=== PATIENT | female | born 1975 | race African-American/Black ===

== ENCOUNTER 2017-01-25 12:57 | Emergency (ER) | payer SELFPAY ==
[2017-01-25] MEDS ORDERED: Ketorolac Tromethamine 30 MG/ML VIAL ONE (13:14)
== END 2017-01-25 14:30 | disposition home or self-care (01) ==
LOC: BURERS 12:57
DX: R51 Headache (principal)
CPT/HCPCS: 96374; J1885

== ENCOUNTER 2017-02-27 12:14 | Emergency (ER) | payer SELFPAY ==
[2017-02-27 12:43] LABS: Bilirubin Negative (Negative); Blood, Urine Trace (Negative); Clarity Slightly Cloudy (Clear); Glucose, Urine (Dipstick) Negative (Negative); Leukocyte Large (Negative); Nitrite Negative (Negative); Protein, Urine (Dipstick) Negative (Neg-Trace); Specific Gravity, Urine 1.015 (1.005-1.030)
[2017-02-27 12:47] LABS: Pregnancy Test - Urine (BHCG) NEGATIVE (NEGATIVE)
[2017-02-27 12:48] LABS: Pregu Control Bar Appear? YES (CONTROL BAR); Specific Gravity 1.015 (1.002-1.036)
[2017-02-27 12:51] LABS: Bacteria/HPF 1+ HPF (None Seen); Crystals/HPF None Seen HPF (Negative); Hyaline Casts/LPF NONE SEEN LPF (0-3 Hyaline); Other Casts/LPF None Seen LPF (0-3 Hyaline); Oval Fat Bodies/HPF None Seen HPF (None Seen); RBC/HPF 0-3 HPF (0-3); Renal Epithelial None Seen HPF (0-3); Sperm/HPF None Seen HPF (None Seen); Transitional Epithelial NONE SEEN HPF (0-3); Trichomonas/HPF None Seen HPF (None Seen); WBC/HPF 21-50 HPF (0-3); Yeast-All Forms None Seen HPF (None Seen)
== END 2017-02-27 13:02 | disposition home or self-care (01) ==
LOC: BURERS 12:14
DX: N39.0 Urinary tract infection, site not specified (principal)
CPT/HCPCS: 81003; 81015; 81025; 99283

== ENCOUNTER 2017-10-02 15:28 | Emergency (ER) | payer SELFPAY ==
[2017-10-02] MEDS ORDERED: Bicillin LA 1.2 MILLION UNITS/2 ML SYRINGE ONE (15:41)
[2017-10-02] MEDS ORDERED: Dexamethasone 4 mg/ml Vial ONE (15:41)
[2017-10-02] MEDS ORDERED: Bicillin CR 1.2 MILL UNITS/2 ML SYRINGE ONE (15:42)
== END 2017-10-02 16:02 | disposition home or self-care (01) ==
LOC: BURERS 15:28
DX: J02.9 Acute pharyngitis, unspecified (principal)
CPT/HCPCS: 96372; J0558; J0561; J1100

== ENCOUNTER 2017-12-22 22:01 | Emergency (ER) | payer OTHER, SELFPAY ==
[2017-12-22] MEDS ORDERED: Azithromycin 250 MG TAB ONE (22:32)
[2017-12-22] MEDS ORDERED: methylPREDNISolone Acetate 40 mg/ml Vial ONE (22:32)
== END 2017-12-22 22:38 | disposition home or self-care (01) ==
LOC: BURERS 22:01
DX: J01.90 Acute sinusitis, unspecified (principal)
CPT/HCPCS: 96372; J1030

== ENCOUNTER 2018-01-20 19:11 | Emergency (ER) | payer OTHER, SELFPAY ==
[2018-01-20] MEDS ORDERED: Amoxicillin 125 mg/5 ml Oral Suspension ONE (19:52)
[2018-01-20] MEDS ORDERED: Benzonatate 100 MG CAP ONE (19:52)
[2018-01-20] MEDS ORDERED: AMOXicillin 250 MG CAP ONE (19:53)
== END 2018-01-20 19:56 | disposition home or self-care (01) ==
LOC: BURERS 19:11
DX: J01.90 Acute sinusitis, unspecified (principal)
CPT/HCPCS: 99283

== ENCOUNTER 2018-01-22 12:12 | Emergency (ER) | payer SELFPAY | END 2018-01-22 12:32 | disposition home or self-care (01) | LOC: BURERS 12:12 | DX: J20.9 Acute bronchitis, unspecified (principal) | CPT/HCPCS: 99283 ==

== ENCOUNTER 2018-05-25 12:12 | Emergency (ER) | payer MEDICAID, SELFPAY ==
[2018-05-25 12:30] LABS: Bilirubin Negative (Negative); Clarity Cloudy (Clear); Glucose, Urine (Dipstick) Negative (Negative); Leukocyte Small (Negative); Nitrite Negative (Negative); Protein, Urine (Dipstick) 30 mg/dL (Neg-Trace); pH, Urine 8.5 (5.0-9.0)
[2018-05-25 12:31] LABS: Blood, Urine Negative (Negative)
[2018-05-25 12:32] LABS: Bacteria/HPF 3+ HPF (None Seen); RBC/HPF 0-3 HPF (0-3)
--- NOTE | 2018-05-25 12:58 | RAD ---
CHEST ONE VIEW LEFT RIBS THREE VIEWS: History: Chest pain. Patient feels a bump. Symptoms x one week. FINDINGS: One view chest. Normal cardiac silhouette. Lungs and pleural spaces are clear. No pneumothorax or oss eous abnormality. Left rib series. No fracture. No cortical irregularity or periosteal reaction. IMPRESSION: 1. No acute cardiopulmonary process. 2. Unremarkable left rib radiographs. POS: [facility]
== END 2018-05-25 13:02 | disposition home or self-care (01) ==
LOC: BURERS 12:12
DX: R07.89 Other chest pain (principal)
CPT/HCPCS: 81003; 81015

== ENCOUNTER 2018-05-27 11:34 | Emergency (ER) | payer MEDICAID, SELFPAY | END 2018-05-27 12:10 | disposition home or self-care (01) | LOC: BURERS 11:34 | DX: R07.89 Other chest pain (principal); Z79.899 Other long term (current) drug therapy | CPT/HCPCS: 93005 ==

== ENCOUNTER → 2018-09-15 | Emergency (ER) | payer SELFPAY | LOC: BURERS 12:05 | DX: J06.9 Acute upper respiratory infection, unspecified (principal) | CPT/HCPCS: 99283 ==

== ENCOUNTER 2019-01-27 12:15 | Emergency (ER) | payer MEDICAID, SELFPAY ==
[2019-01-27] MEDS ORDERED: Dexamethasone 4 MG TAB ONE (12:28)
[2019-01-27] MEDS ORDERED: Bicillin CR 1.2 MILL UNITS/2 ML SYRINGE ONE (12:28)
== END 2019-01-27 12:34 | disposition home or self-care (01) ==
LOC: BURERS 12:15
DX: J02.9 Acute pharyngitis, unspecified (principal)
CPT/HCPCS: 96372; J0558; J8540

== ENCOUNTER 2019-02-27 22:16 | Emergency (ER) | payer SELFPAY ==
[2019-02-27] MEDS ORDERED: traMADol HCl 50 MG TAB ONE (23:03)
[2019-02-27] MEDS ORDERED: Ibuprofen 800 MG TAB ONE (23:03)
== END 2019-02-27 23:10 | disposition home or self-care (01) ==
LOC: BURERS 22:16
DX: M75.52 Bursitis of left shoulder (principal)
CPT/HCPCS: 93005; 94760

== ENCOUNTER 2019-03-18 16:14 | Emergency (ER) | payer SELFPAY | END 2019-03-18 16:32 | disposition home or self-care (01) | LOC: BURERS 16:14 | DX: M79.632 Pain in left forearm (principal) | CPT/HCPCS: 99281 ==

== ENCOUNTER 2019-04-11 11:36 | Emergency (ER) | payer SELFPAY | END 2019-04-11 11:55 | disposition home or self-care (01) | LOC: BURERS 11:36 | DX: J06.9 Acute upper respiratory infection, unspecified (principal) | CPT/HCPCS: 99281 ==

== ENCOUNTER 2019-10-31 13:46 | Emergency (ER) | payer MEDICAID, SELFPAY ==
[2019-10-31] MEDS ORDERED: traMADol HCl 50 MG TAB ONE (14:09)
[2019-10-31] MEDS ORDERED: AMOXicillin 250 MG CAP ONE (14:09)
== END 2019-10-31 14:15 | disposition home or self-care (01) ==
LOC: BURERS 13:46
DX: L04.0 Acute lymphadenitis of face, head and neck (principal); R51 Headache
CPT/HCPCS: 99283

== ENCOUNTER 2021-09-01 16:37 | Emergency (ER) | payer SELFPAY ==
[2021-09-01] MEDS ORDERED: Ketorolac Tromethamine 30 MG/ML VIAL ONE (17:08)
== END 2021-09-01 17:40 | disposition home or self-care (01) ==
LOC: BURERS 16:37
DX: G89.18 Other acute postprocedural pain (principal); K08.89 Other specified disorders of teeth and supporting structures
CPT/HCPCS: 96372; 99282; J1885

== ENCOUNTER 2022-02-28 12:46 | Emergency (ER) | payer SELFPAY ==
[2022-02-28 13:40] LABS: Bilirubin Negative (Negative); Blood, Urine Negative (Negative); Clarity Cloudy (Clear); Glucose, Urine (Dipstick) Negative (Negative); Ketone, Urine Negative (Negative); Leukocyte Small (Negative); Nitrite Negative (Negative); Protein, Urine (Dipstick) Negative (Neg-Trace); Specific Gravity, Urine 1.025 (1.005-1.030); Urobilinogen 0.2 mg/dL (Less than 2)
[2022-02-28 13:44] LABS: Bacteria/HPF 3+ HPF (None Seen); RBC/HPF 0-3 HPF (0-3); Squamous Epithelial 0-3 HPF (0-3)
[2022-02-28 13:45] LABS: Mucous/LPF 2+ LPF (<2+); Pregnancy Test - Urine (BHCG) Negative (Negative); Specific Gravity 1.025 (1.002-1.036)
[2022-02-28 13:46] LABS: Pregu Control Background? CLEAR/WHITE (CLR/WHITE); Pregu Control Bar Appear? YES (CONTROL BAR)
[2022-02-28 13:47] LABS: #Basophils 0.2 thou/uL (0.0-0.2); #Eosinphils 0.1 thou/uL (0.0-0.7); #Monocytes 0.5 thou/uL (0.11-0.59); #Neutrophils 3.8 thou/uL (1.40-6.50); %Basophils 2.3 % (0.0-1.0); %Eosinophils 1.6 % (0.0-10.0); %Lymphocytes 39.7 % (21.0-51.0); %Monocytes 6.8 % (0.0-10.0); %Neutrophils 49.7 % (42.0-75.0); Hemoglobin 11.5 g/dL (12.0-16.0); Mean Corpuscular HGB CONC 33.3 g/dL (32.0-36.0); Mean Corpuscular Hemoglobin 31.7 pg (27.0-31.0); Mean Corpuscular Volume 95.2 fL (78.0-98.0); Mean Platelet Volume 7.9 fL (7.4-10.4); Platelet Count 383 thou/uL (130-400); RBC Distribution Width 12.3 % (11.5-14.5); Red Blood Cell (RBC) Count 3.62 mill/uL (4.20-5.40); White Blood Cell (WBC) Count 7.7 thou/uL (4.8-10.8)
[2022-02-28 13:57] LABS: ALT (SGPT) 36 U/L (8-55); AST (SGOT) 23 U/L (5-34); Albumin 4.1 g/dL (3.5-5.0); Alkaline Phosphatase 58 U/L (40-110); Anion Gap 11 mmol/L (10-20); BUN (Urea Nitrogen) 10 mg/dL (7.0-18.7); Bilirubin, Total 0.3 mg/dL (0.2-1.2); Calc. Creatinine Clearance 0 mL/min (70-130); Calcium 9.5 mg/dL (7.8-10.44); Carbon Dioxide 26 mmol/L (22-29); Chloride 104 mmol/L (98-107); Globulin 4.2 g/dL (2.4-3.5); Glucose 91 mg/dL (70-105); Lipase 41 U/L (8-78); Potassium 4.1 mmol/L (3.5-5.1); Protein, Total 8.3 g/dL (6.0-8.3); Sodium 137 mmol/L (136-145)
[2022-02-28] MEDS ORDERED: Magnesium Citrate 300 ML BOT ONE (14:16)
== END 2022-02-28 14:20 | disposition home or self-care (01) ==
LOC: BURERS 12:46
DX: K59.00 Constipation, unspecified (principal)
CPT/HCPCS: 36415; 74176; 80053; 81003; 81015; 81025; 83605; 83690; 85025

== ENCOUNTER 2022-05-30 19:50 | Emergency (ER) | payer MEDICAID, SELFPAY ==
[2022-05-30] MEDS ORDERED: NEOMYCIN-POLYMYXIN-HC EAR SUSP 200 DROP/10 ML BOT ONE (20:14)
[2022-05-30] MEDS ORDERED: Ketorolac Tromethamine 30 MG/ML VIAL ONE (20:14)
[2022-05-30] MEDS ORDERED: AMOXicillin 250 MG CAP ONE (20:14)
== END 2022-05-30 20:35 | disposition home or self-care (01) ==
LOC: BURERS 19:50
DX: H60.92 Unspecified otitis externa, left ear (principal); K04.7 Periapical abscess without sinus
CPT/HCPCS: 96372; 99282; J1885

== ENCOUNTER 2022-07-25 09:01 | Emergency (ER) | payer SELFPAY ==
[2022-07-25] MEDS ORDERED: Dexamethasone 10 MG/ML VIAL ONE ×2 (10:05→10:07)
== END 2022-07-25 10:36 | disposition home or self-care (01) ==
LOC: BURERS 09:01
DX: U07.1 COVID-19 (principal)
CPT/HCPCS: 87081; 87430; 99283; J1100; U0003; U0005

== ENCOUNTER 2022-12-24 05:18 | Emergency (ER) | payer SELFPAY ==
[2022-12-24 06:42] LABS: #Basophils 0.1 thou/uL (0.0-0.2); #Eosinphils 0.1 thou/uL (0.0-0.7); #Monocytes 0.5 thou/uL (0.11-0.59); #Neutrophils 4.9 thou/uL (1.40-6.50); %Basophils 1.4 % (0.0-1.0); %Eosinophils 1.3 % (0.0-10.0); %Lymphocytes 34.7 % (21.0-51.0); %Monocytes 6.2 % (0.0-10.0); %Neutrophils 56.4 % (42.0-75.0); Mean Corpuscular HGB CONC 33.4 g/dL (32.0-36.0); Mean Corpuscular Hemoglobin 30.6 pg (27.0-31.0); Mean Corpuscular Volume 91.6 fl (78.0-98.0); Mean Platelet Volume 7.3 fL (7.4-10.4); Platelet Count 359 10x3/uL (130-400); RBC Distribution Width 12.4 % (11.5-14.5); Red Blood Cell (RBC) Count 3.92 mill/uL (4.20-5.40); White Blood Cell (WBC) Count 8.7 10x3/uL (4.8-10.8)
[2022-12-24 06:46] LABS: Bilirubin Negative (Negative); Blood, Urine Small (Negative); Clarity Clear (Clear); Glucose, Urine (Dipstick) Negative (Negative); Ketone, Urine Trace mg/dL (Negative); Leukocyte Small (Negative); Nitrite Negative (Negative); Protein, Urine (Dipstick) Trace mg/dL (Neg-Trace); Urobilinogen 0.2 mg/dL (Less than 2)
[2022-12-24 06:55] LABS: Mucous/LPF 1+ LPF (<2+)
[2022-12-24 06:57] LABS: Yeast-Budding Rare HPF (None Seen)
[2022-12-24 06:59] LABS: Bacteria/HPF 1+ HPF (None Seen)
[2022-12-24 07:03] LABS: ALT (SGPT) 10 U/L (8-55); AST (SGOT) 14 U/L (5-34); Albumin 4.3 g/dL (3.5-5.0); Alkaline Phosphatase 58 U/L (40-110); Anion Gap 12 mmol/L (10-20); BUN (Urea Nitrogen) 12 mg/dL (7.0-18.7); Bilirubin, Total 0.3 mg/dL (0.2-1.2); Calc. Creatinine Clearance 0 mL/min (70-130); Calcium 9.6 mg/dL (7.8-10.44); Carbon Dioxide 26 mmol/L (22-29); Chloride 103 mmol/L (98-107); Estimated GFR 84; Globulin 3.9 g/dL (2.4-3.5); Glucose 103 mg/dL (70-105); Lipase 53 U/L (8-78); Potassium 3.3 mmol/L (3.5-5.1); Protein, Total 8.2 g/dL (6.0-8.3); Sodium 138 mmol/L (136-145)
[2022-12-24 07:04] LABS: BHCG - Serum Negative (NEGATIVE); Pregs Control Background? CLEAR/WHITE (CLR/WHITE); Pregs Control Bar Appear? YES (CONTROL BAR)
== END 2022-12-24 08:52 | disposition home or self-care (01) ==
LOC: BURERS 05:18
DX: R10.9 Unspecified abdominal pain (principal)
CPT/HCPCS: 36415; 74176; 80053; 81003; 81015; 83690; 84703; 85025

== ENCOUNTER 2023-03-12 18:16 | Emergency (ER) | payer SELFPAY ==
[2023-03-12] MEDS ORDERED: Dexamethasone 4 MG TAB ONE (19:02)
[2023-03-12] MEDS ORDERED: Bicillin LA 1.2 MILLION UNITS/2 ML SYRINGE ONE ×2 (19:03)
== END 2023-03-12 19:30 | disposition home or self-care (01) ==
LOC: BURERS 18:16
DX: J02.0 Streptococcal pharyngitis (principal)
CPT/HCPCS: 87430; 96372; 99283; J0561; J8540

== ENCOUNTER 2023-07-11 19:27 | Emergency (ER) | payer SELFPAY ==
[2023-07-11 20:11] LABS: #Basophils 0.2 thou/uL (0.0-0.2); #Eosinphils 0.1 thou/uL (0.0-0.7); #Lymphocytes 3.6 thou/uL (1.20-3.40); #Monocytes 0.4 thou/uL (0.11-0.59); #Neutrophils 3.4 thou/uL (1.40-6.50); %Basophils 2.1 % (0.0-1.0); %Eosinophils 1.3 % (0.0-10.0); %Lymphocytes 47.3 % (21.0-51.0); %Monocytes 5.1 % (0.0-10.0); %Neutrophils 44.2 % (42.0-75.0); Hematocrit 34.2 % (36.0-47.0); Hemoglobin 10.6 g/dL (12.0-16.0); Mean Corpuscular HGB CONC 30.9 g/dL (32.0-36.0); Mean Corpuscular Hemoglobin 27.3 pg (27.0-31.0); Mean Corpuscular Volume 88.5 fl (78.0-98.0); Mean Platelet Volume 7.4 fL (7.4-10.4); Platelet Count 343 10x3/uL (130-400); RBC Distribution Width 14.9 % (11.5-14.5); Red Blood Cell (RBC) Count 3.87 mill/uL (4.20-5.40); White Blood Cell (WBC) Count 7.6 10x3/uL (4.8-10.8)
[2023-07-11 20:25] LABS: Bilirubin Negative (Negative); Blood, Urine Small (Negative); Clarity Clear (Clear); Glucose, Urine (Dipstick) Negative (Negative); Ketone, Urine Negative (Negative); Leukocyte Negative (Negative); Nitrite Negative (Negative); Protein, Urine (Dipstick) Negative (Neg-Trace); Urobilinogen 0.2 mg/dL (Less than 2); pH, Urine 5.5 (5.0-9.0)
[2023-07-11 20:26] LABS: Specific Gravity, Urine 1.025 (1.002-1.036)
[2023-07-11 20:27] LABS: Pregnancy Test - Urine (BHCG) Negative (Negative); Pregu Control Background? CLEAR/WHITE (CLR/WHITE); Pregu Control Bar Appear? YES (CONTROL BAR); Specific Gravity 1.025 (1.002-1.036)
[2023-07-11 20:29] LABS: ALT (SGPT) 15 U/L (8-55); AST (SGOT) 20 U/L (5-34); Albumin 4.4 g/dL (3.5-5.0); Alkaline Phosphatase 48 U/L (40-110); Anion Gap 15 mmol/L (10-20); BUN (Urea Nitrogen) 13 mg/dL (7.0-18.7); Bilirubin, Total 0.3 mg/dL (0.2-1.2); Calc. Creatinine Clearance 0 mL/min (70-130); Calcium 9.7 mg/dL (7.8-10.44); Carbon Dioxide 23 mmol/L (22-29); Chloride 105 mmol/L (98-107); Estimated GFR 89; Globulin 3.7 g/dL (2.4-3.5); Glucose 90 mg/dL (70-105); Lipase 35 U/L (8-78); Potassium 3.7 mmol/L (3.5-5.1); Protein, Total 8.1 g/dL (6.0-8.3); Sodium 139 mmol/L (136-145)
[2023-07-11 20:33] LABS: CAUTI Indications for Culture Pelvic or flank pain; Squamous Epithelial 0-3 HPF (0-3); WBC/HPF 0-3 HPF (0-3)
[2023-07-11 20:34] LABS: Bacteria/HPF 1+ HPF (None Seen)
[2023-07-11 20:35] LABS: Urine Culture Reflex No No
[2023-07-11] MEDS ORDERED: Famotidine/PF 20 mg/2ml Vial ONE (20:41)
== END 2023-07-11 21:02 | disposition home or self-care (01) ==
LOC: BURERS 19:27
DX: K29.70 Gastritis, unspecified, without bleeding (principal)
CPT/HCPCS: 80053; 81001; 81025; 83690; 85025; 96374; S0028

== ENCOUNTER 2023-07-16 11:07 | Emergency (ER) | payer SELFPAY ==
[2023-07-16 12:14] LABS: %Lymphocytes 41.9 % (21.0-51.0); %Neutrophils 46.1 % (42.0-75.0); Hematocrit 33.2 % (36.0-47.0); Manual Diff?? YES; Mean Corpuscular HGB CONC 30.2 g/dL (32.0-36.0); Mean Corpuscular Hemoglobin 27.4 pg (27.0-31.0); Mean Corpuscular Volume 90.7 fl (78.0-98.0); Mean Platelet Volume 6.6 fL (7.4-10.4); Platelet Count 340 10x3/uL (130-400); RBC Distribution Width 15.3 % (11.5-14.5); Red Blood Cell (RBC) Count 3.66 mill/uL (4.20-5.40); White Blood Cell (WBC) Count 5.1 10x3/uL (4.8-10.8)
[2023-07-16 12:15] LABS: #Basophils 0.1 thou/uL (0.0-0.2); #Eosinphils 0.1 thou/uL (0.0-0.7); #Monocytes 0.4 thou/uL (0.11-0.59); #Neutrophils 2.3 thou/uL (1.40-6.50); %Basophils 1.8 % (0.0-1.0); %Eosinophils 2.2 % (0.0-10.0); %Monocytes 8.1 % (0.0-10.0); MDiff Complete? YES
[2023-07-16] MEDS ORDERED: HYDROcodone/Acetaminophen 10/325 mg Tablet ONE (12:30)
[2023-07-16 12:35] LABS: Carbon Dioxide 25 mmol/L (22-29); Chloride 106 mmol/L (98-107); Potassium 3.7 mmol/L (3.5-5.1); Sodium 139 mmol/L (136-145)
[2023-07-16 12:36] LABS: Anion Gap 16 mmol/L (10-20); BUN (Urea Nitrogen) 8 mg/dL (7.0-18.7); Calc. Creatinine Clearance 0 mL/min (70-130); Calcium 8.9 mg/dL (7.6-10.4); Estimated GFR 94; Glucose 90 mg/dL (70-105)
[2023-07-16 12:49] LABS: Bilirubin Negative (Negative); Blood, Urine Trace (Negative); Clarity Clear (Clear); Glucose, Urine (Dipstick) Negative (Negative); Ketone, Urine Negative (Negative); Leukocyte Negative (Negative); Nitrite Negative (Negative); Protein, Urine (Dipstick) 30 mg/dL (Neg-Trace); pH, Urine 7.5 (5.0-9.0)
[2023-07-16 13:06] LABS: CAUTI Indications for Culture Dysuria,urgency,freq; RBC/HPF None Seen HPF (0-3); Squamous Epithelial 0-3 HPF (0-3); WBC/HPF 0-3 HPF (0-3)
[2023-07-16 13:07] LABS: Bacteria/HPF 1+ HPF (None Seen); Mucous/LPF 3+ LPF (<2+)
[2023-07-16 13:09] LABS: Urine Culture Reflex No No
== END 2023-07-16 14:05 | disposition home or self-care (01) ==
LOC: BURERS 11:07
DX: R10.84 Generalized abdominal pain (principal)
CPT/HCPCS: 36415; 74176; 80048; 81001; 83605; 83690; 85025

== ENCOUNTER 2025-08-11 01:46 | Emergency (ER) | payer MEDICAID, SELFPAY | END 2025-08-11 03:22 | disposition home or self-care (01) | LOC: BURERS 01:46 | DX: K04.7 Periapical abscess without sinus (principal); K08.89 Other specified disorders of teeth and supporting structures | CPT/HCPCS: 99282; J3490 ==